=== PATIENT | male | born 1960 | race Caucasian/White ===

== ENCOUNTER 2018-01-07 04:16 | Emergency (ER) | payer OTHER ==
[~2018-01-07] VITALS: Ht 177.8 cm; Wt 71.3 kg
[2018-01-07 04:26] VITALS: Ht 177.8 cm; Wt 71.3 kg
[2018-01-07 05:59] VITALS: BP 119/69
== END 2018-01-07 05:59 | disposition home or self-care (01) ==
LOC: ED 04:16
DX: L02.214 Cutaneous abscess of groin (principal)
CPT/HCPCS: J2001

== ENCOUNTER 2018-01-10 08:19 | Emergency (ER) | payer OTHER ==
[~2018-01-10] VITALS: Ht 177.8 cm; Wt 70.3 kg
[2018-01-10 08:37] VITALS: BP 117/76; Ht 177.8 cm; Wt 70.3 kg
== END 2018-01-10 09:50 | disposition home or self-care (01) ==
LOC: ED 08:19
DX: Z48.01 Encounter for change or removal of surgical wound dressing (principal); I10 Essential (primary) hypertension